=== PATIENT | female | born 2000 | race Caucasian/White ===

== ENCOUNTER 2023-07-05 16:54 | Emergency (ER) | payer OTHER ==
[~2023-07-05] VITALS: Ht 157.5 cm; Wt 86.2 kg
[2023-07-05 16:59] VITALS: BP 96/68; PULSE 66; RESP 18; TEMP 98.9; O2SAT 98
[2023-07-05] MEDS ORDERED: IBUPROFEN 600 MG TAB PO SCH (18:00)
[2023-07-05 18:20] VITALS: BP 96/68; PULSE 66; RESP 18; TEMP 98.9; O2SAT 98
== END 2023-07-05 18:20 | disposition home or self-care (01) ==
LOC: MED 16:54
DX: S83.8X2A Sprain of other specified parts of left knee, initial encounter (principal); Z79.899 Other long term (current) drug therapy; X50.0XXA Overexertion from strenuous movement or load, initial encounter; Y93.89 Activity, other specified; Y92.89 Other specified places as the place of occurrence of the external cause; Y99.8 Other external cause status
CPT/HCPCS: 73562; 99283